=== PATIENT | female | born 1985 | race Caucasian/White ===

== ENCOUNTER 2017-09-25 08:09 | Day surgery (SDC) | payer BC ==
[~2017-09-25] VITALS: Ht 152.4 cm; Wt 68.9 kg
[2017-09-25] MEDS ORDERED: LR 1,000 ML IV.SOLN IV ONE (09:45)
[2017-09-25] MEDS ORDERED: PROPOFOL 200MG/ 20ML VIAL (DIPRIVAN) IV ONE (09:45)
[2017-09-25] MEDS ORDERED: SEVOFLURANE 15 MIN GAS INH ONE (09:45)
[2017-09-25] MEDS ORDERED: GLYCOPYRROLATE 0.2 MG/ML VIAL IJ ONE (09:45)
[2017-09-25] MEDS ORDERED: NS IRRIG SOLN 1000 ML IR ONE (09:45)
[2017-09-25] MEDS ORDERED: ONDANSETRON HCL 4 MG/2 ML VIAL IVP ONE (09:45)
[2017-09-25] MEDS ORDERED: fentaNYL CITRATE/PF 100 MCG/2 ML AMP IVP ONE (09:45)
[2017-09-25] MEDS ORDERED: KETOROLAC TROMETHAMINE 30 MG VIAL IVP ONE (09:45)
[2017-09-25] MEDS ORDERED: ROCURONIUM BROMIDE 10 MG/ML (ZEMURON) IV ONE (09:45)
[2017-09-25] MEDS ORDERED: MIDAZOLAM HCL 5 MG/5 ML VIAL IVP ONE (09:45)
[2017-09-25] MEDS ORDERED: fentaNYL CITRATE/PF 100 MCG/2 ML AMP IVP PRN ×2 (10:30)
[2017-09-25] MEDS ORDERED: ONDANSETRON HCL 4 MG/2 ML VIAL IVP PRN ×2 (10:30→11:45)
[2017-09-25] MEDS ORDERED: KETOROLAC TROMETHAMINE 30 MG VIAL IVP PRN (10:30)
[2017-09-25] MEDS ORDERED: OXYCODONE/ACETAMINOPHEN 5-325 TABLET PO PRN (11:45)
[2017-09-25] MEDS ORDERED: PROMETHAZINE HCL 25 MG/ML AMP IM PRN (11:45)
[2017-09-25] MEDS ORDERED: fentaNYL CITRATE/PF 100 MCG/2 ML AMP ONE (12:01)
[2017-09-25 13:18] VITALS: BP_SYST 117
== END 2017-09-25 13:47 | disposition home or self-care (01) ==
LOC: SMU 08:09 → SDS 08:09
PROVIDERS: ATTEND Obstetrics & Gynecology
DX: N83.8 Other noninflammatory disorders of ovary, fallopian tube and broad ligament (principal); Z90.49 Acquired absence of other specified parts of digestive tract; Z98.890 Other specified postprocedural states; Z88.8 Allergy status to other drugs, medicaments and biological substances; Z79.899 Other long term (current) drug therapy
CPT/HCPCS: 36415; 86886; 86900; 86901; 88305; C1727; J1885; J2250; J2405; J2704; J3010; J3490; J7120

== ENCOUNTER 2018-10-27 09:36 | Inpatient (IN) | payer OTHER ==
[~2018-10-27] VITALS: Ht 152.4 cm; Wt 78.9 kg
[2018-10-27] MEDS ORDERED: LR 1,000 ML IV ONE (11:17)
[2018-10-27 11:22] VITALS: BP_SYST 137
[2018-10-27] MEDS ORDERED: CEFAZOLIN 2 GM IVPB PREMIX 50 ML IV ONE (11:30)
[2018-10-27 11:38] LABS: BILIRUBIN,URINE NEGATIVE (NEGATIVE); BLOOD, URINE NEGATIVE (NEGATIVE); CLARITY/URINE CLEAR (CLEAR); COLOR,URINE YELLOW (YELLOW); GLUCOSE,URINE NEGATIVE (NEGATIVE); KETONES,URINE TRACE (NEGATIVE); LEUKOCYTE ESTERASE ,URINE TRACE (NEGATIVE); NITRITE, URINE NEGATIVE (NEGATIVE); PH,URINE 6.5 (5.0-8.0); PROTEIN URINE 1+ (NEGATIVE); UROBILINOGEN,URINE 0.2 (0.2-1.0)
[2018-10-27 11:47] LABS: BASOPHILS % (AUTO) 0.4 % (0.0-2.0); EOSINOPHILS % (AUTO) 0.4 % (0.0-4.0); HEMATOCRIT 37.9 % (36-48); HEMOGLOBIN 12.7 g/dL (12.0-16.0); LYMPHOCYTES # (AUTO) 1.3 K/uL (1.0-5.5); LYMPHOCYTES % (AUTO) 14.7 % (20.5-51.5); MEAN CORPUSCULAR HEMOGLOBIN 28 pg (27-31); MEAN CORPUSCULAR HGB CONC 33 % (32-36); MEAN CORPUSCULAR VOLUME 83 fL (79.0-98.0); MONOCYTES # (AUTO) 0.4 K/uL (0.0-1.0); MONOCYTES % (AUTO) 4.1 % (1.7-9.3); NEUTROPHILS # (AUTO) 7.3 K/uL (1.8-7.7); NEUTROPHILS % (AUTO) 80.4 % (40.0-70.0); PLATELET COUNT (AUTO) 322 K/uL (130-430); RED BLOOD CELL COUNT(AUTO) 4.55 MIL/uL (4.2-6.2); RED CELL DISTRIBUTION WIDTH 14.5 % (9.0-15.0); WHITE BLOOD COUNT (AUTO) 9.1 K/uL (4.8-10.8)
[2018-10-27 12:01] LABS: BACTERIA,URINE FEW /HPF (None Seen); RBC,URINE 0-3 /HPF (0-3)
[2018-10-27] MEDS ORDERED: NALOXONE HCL 1 MG in NACL 0.9% 1,000 ML IV PRN ×4 (14:05)
[2018-10-27] MEDS ORDERED: LR 1,000 ML IV SCH ×2 (14:05→14:33)
[2018-10-27] MEDS ORDERED: HYDROmorphone 2 MG/ML VIAL IVP PRN ×2 (14:15)
[2018-10-27] MEDS ORDERED: HYDROmorphone 1 MG INJ. 1 MG/ML AMPUL IVP PRN (14:15)
[2018-10-27] MEDS ORDERED: DIPHENHYDRAMINE HCL 50 MG CAPSULE PO PRN (14:15)
[2018-10-27] MEDS ORDERED: NALOXONE HCL 0.4 MG/ML AMP (NARCAN) IVP PRN ×3 (14:15)
[2018-10-27] MEDS ORDERED: DIPHENHYDRAMINE INJ 50 MG/ML VIAL IVP PRN (14:15)
[2018-10-27] MEDS ORDERED: MEPERIDINE HCL/PF 25 MG/ML DISP.SYRIN IVP PRN ×2 (14:15)
[2018-10-27] MEDS ORDERED: ONDANSETRON HCL 4 MG/2 ML VIAL IVP PRN (14:15)
[2018-10-27] MEDS ORDERED: OXYTOCIN/0.9 % SODIUM CHLORIDE 1,000 ML IV ONE ×2 (14:33→14:56)
[2018-10-27 14:40] VITALS: BP_SYST 132
[2018-10-27] MEDS ORDERED: ePHEDrine sulfate 50 MG/ML VIAL ONE (14:40)
[2018-10-27] MEDS ORDERED: MORPHINE SULFATE 10MG/10ML PF AMP ONE (14:40)
[2018-10-27] MEDS ORDERED: ONDANSETRON HCL 4 MG/2 ML VIAL ONE (14:40)
[2018-10-27] MEDS ORDERED: BUPIVACAINE /DEX PF 0.75% SPINAL 2 ML AMP INJ ONE (14:40)
[2018-10-27] MEDS ORDERED: OXYTOCIN 10 UNIT/ML VIAL ONE (14:40)
[2018-10-27] MEDS ORDERED: NS IRRIG SOLN 1000 ML IR ONE (14:40)
[2018-10-27] MEDS ORDERED: LR 1,000 ML IV.SOLN IV ONE (14:40)
[2018-10-27] MEDS ORDERED: METOCLOPRAMIDE HCL 10 MG/2 ML VIAL ONE (14:40)
[2018-10-27] MEDS ORDERED: OXYTOCIN/0.9 % SODIUM CHLORIDE 20 UNITS/1,000 ML BAG IV ONE (14:40)
[2018-10-27] MEDS ORDERED: SENNOSIDES/DOCUSATE SODIUM 1 TAB TABLET(SENOKOT-S) PO PRN (14:45)
[2018-10-27] MEDS ORDERED: ANUSOL 1 EA SUPP.RECT (PREPARATION H) RC PRN (14:45)
[2018-10-27] MEDS ORDERED: BISACODYL 10 MG/SUPPOSITORY RC PRN (14:45)
[2018-10-27] MEDS ORDERED: RHO(D) IMMUNE GLOBULIN/MALTOSE 1500 UNITS/1.3 ML (WINHRO) IM PRN (14:45)
[2018-10-27] MEDS ORDERED: MEASLES,MUMPS&RUBELLA VACC/PF 12500 UNIT/0.5 ML VIAL SUBQ PRN (14:45)
[2018-10-27] MEDS ORDERED: LANOLIN 7 GM OINT. TP PRN (14:45)
[2018-10-27] MEDS ORDERED: OXYCODONE/ACETAMINOPHEN 5-325 TABLET PO PRN (14:45)
[2018-10-27] MEDS ORDERED: KETOROLAC TROMETHAMINE 30 MG VIAL IM ONE (18:00)
[2018-10-27] MEDS ORDERED: TEMAZEPAM 15 MG CAPSULE PO PRN (21:00)
[2018-10-27] MEDS: SIMETHICONE 80 MG TAB.CHEW PO PRN ×2 (21:10→23:37)
[2018-10-27] MEDS: IBUPROFEN 600 MG TABLET PO SCH (23:37)
[2018-10-28] MEDS: SIMETHICONE 80 MG TAB.CHEW PO PRN ×4 (05:50→22:16)
[2018-10-28] MEDS: IBUPROFEN 600 MG TABLET PO SCH ×3 (05:50→18:20)
[2018-10-28 06:29] LABS: BASOPHILS % (AUTO) 0.3 % (0.0-2.0); EOSINOPHILS # (AUTO) 0.1 K/uL (0.0-0.4); HEMATOCRIT 26.1 % (36-48); HEMOGLOBIN 8.6 g/dL (12.0-16.0); LYMPHOCYTES # (AUTO) 1.6 K/uL (1.0-5.5); LYMPHOCYTES % (AUTO) 13.4 % (20.5-51.5); MEAN CORPUSCULAR HEMOGLOBIN 28 pg (27-31); MEAN CORPUSCULAR HGB CONC 33 % (32-36); MEAN CORPUSCULAR VOLUME 84 fL (79.0-98.0); MONOCYTES # (AUTO) 0.8 K/uL (0.0-1.0); MONOCYTES % (AUTO) 6.4 % (1.7-9.3); NEUTROPHILS # (AUTO) 9.4 K/uL (1.8-7.7); NEUTROPHILS % (AUTO) 78.9 % (40.0-70.0); PLATELET COUNT (AUTO) 201 K/uL (130-430); RED BLOOD CELL COUNT(AUTO) 3.11 MIL/uL (4.2-6.2); RED CELL DISTRIBUTION WIDTH 14.3 % (9.0-15.0)
[2018-10-28 06:52] LABS: WHITE BLOOD COUNT (AUTO) 11.9 K/uL (4.8-10.8)
[2018-10-28] MEDS: DOCUSATE SODIUM 100 MG CAPSULE PO PRN ×2 (10:02→22:16)
[2018-10-28] MEDS: OXYCODONE/ACETAMINOPHEN 5-325 TABLET PO PRN ×3 (10:02→22:15)
[2018-10-29] MEDS: IBUPROFEN 600 MG TABLET PO SCH ×3 (05:45→12:09)
[2018-10-29] MEDS: DOCUSATE SODIUM 100 MG CAPSULE PO PRN (12:50)
[2018-10-29] MEDS: OXYCODONE/ACETAMINOPHEN 5-325 TABLET PO PRN (15:56)
== END 2018-10-29 16:30 | disposition home or self-care (01) | DRG 788 ==
LOC: SPU 09:36
PROVIDERS: ADMIT Obstetrics & Gynecology; ATTEND Obstetrics & Gynecology
PROC: 10D00Z1 Extraction of Products of Conception, Low, Open Approach (ICD-10-PCS; principal; 2018-10-27 12:30)
DX: O13.4 Gestational [pregnancy-induced] hypertension without significant proteinuria, complicating childbirth (principal); O99.344 Other mental disorders complicating childbirth; F32.9 Major depressive disorder, single episode, unspecified; Z37.0 Single live birth; Z3A.38 38 weeks gestation of pregnancy; Z82.49 Family history of ischemic heart disease and other diseases of the circulatory system; Z83.3 Family history of diabetes mellitus; Z90.49 Acquired absence of other specified parts of digestive tract; Z88.1 Allergy status to other antibiotic agents; Z88.2 Allergy status to sulfonamides
CPT/HCPCS: 36415; 81000-TC; 85025; 86592; 86886; 86900; 86901; 94760; J0690; J1200; J1885; J2274; J2405; J2590; J2765; J3490; J7120